=== PATIENT | male | born 2000 | race Native Hawaiian/Other Pacific Islander ===

== ENCOUNTER 2022-07-16 02:03 | Inpatient (IN) | payer MEDICAID, OTHER ==
--- NOTE | 2022-07-16 03:03 | ED ---
Psych HPI - General Source: patient, RN notes reviewed Mode of arrival: ambulatory <AcJulian - Last Filed: 07/16/22 04:48> <Shlomo Petty - Last Filed: 07/18/22 08:10> - General Chief Complaint: Psychiatric Symptoms Stated Complaint: Mental status Time Seen by Provider: 07/16/22 02:49 - History of Present Illness Initial Comments: This is an otherwise healthy 22-year-old male who presents tonight complaining of ongoing stress, depression, anxiety. States his going on for about 3 months due to life stressors to include a recent breakup with his girlfriend. patient denies any alcohol or illicit drug abuse. Does occasionally use marijuana. States that he is having suicidal thoughts but no specific plan. No homicidal ideation. Patient has no other significant past medical history. Patient also complaining of ongoing sleep disturbance, lack of enjoyment, diminished appetite. No headache, no fever or chills, no changes in vision or hearing, no sore throat or difficulty with speech, no neck pain, no chest pain or shortness of breath, no abdominal pain, no nausea or vomiting, no changes in urination or bowel movem ents, no numbness or tingling, no extremity pain, no skin rashes or lesions. Past medical, surgical, social, and family history reviewed. (Julian Shen) - Related Data Allergies Allergy/AdvReac Type Severity Reaction Status Date / Time No Known Allergies Allergy Verified 07/16/22 02:48 Review of Systems ROS Other: All systems not noted in ROS Statement are negative. <AcJulian - Last Filed: 07/16/22 04:48> ROS Other: All systems not noted in ROS Statement are negative. <Shlomo Petty - Last Filed: 07/18/22 08:10> ROS Statement: Those systems with pertinent positive or pertinent negative responses have been documented in the HPI. Past Medical History Past Medical History: No Reported History History of Any Multi-Drug Resistant Organisms: None Reported Past Surgical History: No Surgical Hx Reported Past Psychological History: No Psychological Hx Reported Smoking Status: Never smoker Past Alcohol Use History: None Reported Past Drug Use History: Marijuana <AcJulian - Last Filed: 07/16/22 04:48> General Exam General appearance: alert, in no apparent distress Head exam: Present: atraumatic, normocephalic, normal inspection Eye exam: Present: normal appearance, PERRL, EOMI. Absent: scleral icterus, conjunctival injection, periorbital swelling ENT exam: Present: normal exam, normal oropharynx, mucous membranes moist, normal external ear exam. Absent: mucous membranes dry Neck exam: Present: normal inspection, full ROM. Absent: tenderness, meningismus, lymphadenopathy Respiratory exam: Present: normal lung sounds bilaterally. Absent: respiratory distress, wheezes, rales, rhonchi, stridor Cardiovascular Exam: Present: regular rate, normal rhythm, normal heart sounds. Absent: systolic murmur, diastolic murmur, rubs, gallop, clicks GI/Abdominal exam: Present: soft, normal bowel sounds. Absent: distended, tenderness, guarding, rebound, rigid Extremities exam: Present: normal inspection, full ROM, normal capillary refill. Absent: tenderness, pedal edema, joint swelling, calf tenderness Back exam: Present: normal inspection Neurological exam: Present: alert, oriented X3, CN II-XII intact Psychiatric exam: Present: depressed, flat affect, other (Suicidal thoughts admitted). Absent: normal affect, normal mood, agitated, anxious, manic, homicidal ideation Skin exam: Present: warm, dry, intact, normal color. Absent: rash <Julian Shen - Last Filed: 07/16/22 04:48> - General Exam Comments Initial Comments: Patient does not appear to be ill or toxic, vital signs reviewed (Julian Shen) Course Vital Signs 07/16/22 07/16/22 02:44 07:28 Temperature 98 F Pulse Rate 60 62 Respiratory 18 18 Rate Blood Pressure 124/69 122/70 O2 Sat by Pulse 100 99 Oximetry Medical Decision Making <Julian Shen - Last Filed: 07/16/22 04:48> - Lab Data Result diagrams: 07/16/22 14:54 07/16/22 14:54 <Shlomo Petty - Last Filed: 07/18/22 08:10> - Medical Decision Making Patient presents with depressive symptoms secondary to breaking up with his girlfriend--symptoms of depression and lack of enjoyment for 3 months. We'll o btain a emergency psychiatric services evaluation. Patient endorsed to the ED attending physician at 4:48 AM for further evaluation and disposition. Patient awaiting EPS evaluation. (Julian Shen) patient has signed himself in for mental health (Shlomo Petty) - Lab Data Lab Results 07/16/22 07/16/22 07/16/22 Range/Units 02:58 02:58 05:31 Urine Color Yellow Urine Appearance Cloudy (Clear) Urine pH 6.0 (5.0-8.0) Ur Specific [place] 1.028 (1.001-1.035) Urine Protein Trace H (Negative) Urine Glucose (UA) Negative (Negative) Urine Ketones 2+ H (Negative) Urine Blood Negative (Negative) Urine Nitrite Negative (Negative) Urine Bilirubin Negative (Negative) Urine Urobilinogen <2.0 (<2.0) mg/dL Ur Leukocyte Esterase Large H (Negative) Urine RBC 4 (0-5) /hpf Urine WBC 85 H (0-5) /hpf Ur Squamous Epith Cells <1 (0-4) /hpf Calcium Oxalate Crystal Few H (None) /hpf Urine Bacteria Moderate H (None) /hpf Hyaline Casts 1 (0-2) /lpf Urine Mucus Rare H (None) /hpf Urine Opiates Screen Not Detected (NotDetected) Ur Oxycodone Screen Not Detected (NotDetected) Urine Methadone Screen Not Detected (NotDetected) Ur Propoxyphene Screen Not Detected (NotDetected) Ur Barbiturates Screen Not Detected (NotDetected) U Tricyclic Antidepress Not Detected (NotDetected) Ur Phencyclidine Scrn Not Detected (NotDetected) Ur Amphetamines Screen Not Detected (NotDetected) U Methamphetamines Scrn Not Detected (NotDetected) U Benzodiazepines Scrn Not Detected (NotDetected) Urine Cocaine Screen Not Detected (NotDetected) U Marijuana (THC) Screen Detected H (NotDetected) Coronavirus (PCR) Not Detected (Not Detectd) Disposition <Julian Shen - Last Filed: 07/16/22 04:48> Is patient prescribed a controlled substance at d/c from ED?: No Time of Disposition: 05:32 <Shlomo Petty - Last Filed: 07/18/22 08:10> Clinical Impression: Depression, Situational stress, Suicidal thoughts Disposition: ADMITTED IP TO THIS HOSP Condition: Stable
[2022-07-16 05:03] LABS: Amphetamine Screen,Urine Not Detected (NotDetected); Barbiturate Screen,Urine Not Detected (NotDetected); Benzodiazepines Screen,Urine Not Detected (NotDetected); Cocaine Screen,Urine Not Detected (NotDetected); Methadone Screen, Urine Not Detected (NotDetected); Opiate Screen,Urine Not Detected (NotDetected); Oxycodone Screen, Urine Not Detected (NotDetected); Phencyclidine Screen,Urine Not Detected (NotDetected); Tricyclic Antidepressant,Urine Not Detected (NotDetected); Urn Cannabinoid Scrn Detected (NotDetected)
[2022-07-16] MEDS ORDERED: LORazepam 1 MG TAB PO PRN (07:02)
[2022-07-16] MEDS ORDERED: MAGNESIUM HYDROXIDE 2,400 MG/10 ML CUP PO PRN (07:02)
[2022-07-16] MEDS ORDERED: ACETAMINOPHEN TAB 325 MG TAB PO PRN (07:02)
[2022-07-16] MEDS ORDERED: HALOPERIDOL LACTATE 5 MG/ML 1 ML VIAL IM PRN (07:02)
[2022-07-16] MEDS ORDERED: MAG HYDROX/AL HYDROX/SIMETH 30 ML CUP PO PRN (07:02)
[2022-07-16] MEDS ORDERED: LORazepam 2 MG/ML INJ IM PRN (07:06)
[2022-07-16] MEDS ORDERED: haloperidoL 5 MG TAB PO PRN (07:07)
[2022-07-16] MEDS ORDERED: NICOTINE 14MG/24HR PATCH TRANSDERM SCH (09:00)
[2022-07-16] MEDS ORDERED: FLUoxetine HCL 10 MG CAP PO STA (10:14)
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
[2022-07-16 15:32] LABS: ALT 17 U/L (4-49); AST 22 U/L (17-59); African American GFR (CKD) >90 (>60 ml/min/1.73 sqM); Albumin 4.9 g/dL (3.5-5.0); Alkaline Phosphatase 55 U/L (38-126); Anion Gap 14 mmol/L; Blood Urea Nitrogen 14 mg/dL (9-20); Calcium 9.9 mg/dL (8.4-10.2); Carbon Dioxide 25 mmol/L (22-30); Chloride 100 mmol/L (98-107); Glucose 125 mg/dL (74-99); Non-African American GFR(CKD) >90 (>60 ml/min/1.73 sqM); Potassium 4.2 mmol/L (3.5-5.1); Sodium 139 mmol/L (137-145); Total Bilirubin 1.5 mg/dL (0.2-1.3); Total Protein 7.5 g/dL (6.3-8.2)
[2022-07-16 15:35] LABS: Basophils % (A) 1 %; Eosinophils # (A) 0.1 k/uL (0-0.7); Eosinophils % (A) 1 %; HCT 44.6 % (39.0-53.0); HGB 15.2 gm/dL (13.0-17.5); Lymphocytes # (A) 1.1 k/uL (1.0-4.8); Lymphocytes % (A) 13 %; MCH 30.4 pg (25.0-35.0); MCV 89.3 fL (80.0-100.0); Monocytes # (A) 0.6 k/uL (0-1.0); Monocytes % (A) 8 %; Neutrophils # (A) 6.4 k/uL (1.3-7.7); Neutrophils % (A) 76 %; Platelet Count 311 k/uL (150-450); RBC 4.99 m/uL (4.30-5.90); RDW 13.1 % (11.5-15.5); WBC 8.3 k/uL (3.8-10.6)
[2022-07-16 15:44] LABS: Appearance,Urine Cloudy (Clear); Bacteria,Urine Moderate /hpf; Bilirubin,Urine Negative (Negative); Blood,Urine Negative (Negative); Calcium Oxalate Crystals,Urine Few /hpf; Color,Urine Yellow; Glucose,Urine (UA) Negative (Negative); Hyaline Casts,Urine 1 /lpf (0-2); Ketones,Urine 2+ (Negative); Leukocyte Esterase,Urine Large (Negative); Mucus,Urine Rare /hpf; Nitrite,Urine Negative (Negative); Protein,Urine Trace (Negative); RBC,Urine 4 /hpf (0-5); Specific Gravity,Urine 1.028 (1.001-1.035); Squamous Epithelial Cell,Urine <1 /hpf (0-4); Urobilinogen,Urine <2.0 mg/dL (<2.0); WBC,Urine 85 /hpf (0-5)
--- NOTE | 2022-07-16 15:57 | P.CONS ---
History of Present Illness - Reason for Consult Consult date: 07/16/22 - History of Present Illness 22-year-old male with no significant past medical history presents ED for behavioral disturbance. He is being admitted to mental health unit for further management of symptoms. [facility] has been consulted for medical management of this patient. Patient reports no complaints. He denies any headache, lower extremity edema, nausea or vomiting, fever chills, chest pain, shortness of breath, palpitations, changes in urination or bowel habits. No changes in appetite or weight. He d enies any dizziness, numbness/weakness/tingling of the extremities. He does not smoke cigarettes or drink alcohol. He reports occasional marijuana use. Review of systems has been performed and is negative except above. General: non toxic, no distress, appears at stated age Derm: warm, dry Head: atraumatic, normocephalic, symmetric Eyes: EOMI, no lid lag, anicteric sclera Mouth: no lip lesion, mucus membranes moist Cardiovascular: S1S2 reg, no murmur Lungs: CTA bilateral, no rhonchi, no rales , no accessory muscle use Abdominal: soft, nontender to palpation, no guarding, no appreciable o rganomegaly Ext: no gross muscle atrophy, no edema, no contractures Neuro: CN II-XI grossly intact, no focal neuro deficits Psych: Alert, oriented, appropriate affect #Elevated total bilirubin #Marijuana abuse Patient is elevated total bilirubin. Liver enzymes are otherwise within normal limits. This is of unknown significance. He has no abdominal pain. Continue to monitor. Patient has been encouraged to quit smoking marijuana. Thank you for this consultation. Please call [facility] with additional questions or concerns. Past Medical History Past Medical History: No Reported History History of Any Multi-Drug Resistant Organisms: None Reported Past Surgical History: No Surgical Hx Reported Past Psychological History: No Psychological Hx Reported Smoking Status: Never smoker Past Alcohol Use History: None Reported Past Drug Use History: Marijuana Medications and Allergies Allergies Allergy/AdvReac Type Severity Reaction Status Date / Time No Known Allergies Allergy Verified 07/16/22 02:48 Physical Exam Vitals: Vital Signs Temp Pulse Pulse Resp BP BP Pulse Ox 07/16/22 07:36 97.6 F 50 L 16 112/65 99 07/16/22 07:28 62 18 122/70 99 07/16/22 02:44 98 F 60 18 124/69 100 Intake and Output 07/16/22 07/16/22 07/16/22 06:59 14:59 22:59 Other: Weight 77.111 kg Results CBC & Chem 7: 07/16/22 14:54 07/16/22 14:54 Labs: Abnormal Lab Results - Last 24 Hours (Table) 07/16/22 07/16/22 Range/Units 02:58 14:54 Glucose 125 H (74-99) mg/dL Total Bilirubin 1.5 H (0.2-1.3) mg/dL U Marijuana (THC) Screen Detected H (NotDetected)
[2022-07-17] MEDS: FLUoxetine HCL 20 MG CAP PO SCH (08:46)
--- NOTE | 2022-07-17 12:53 | P.PN ---
Progress Note - Text Progress Note Date: 07/17/22 Interval History: Patient was seen in the interview room. He had been with visitors today. He reports that he has been doing well especially upon learning that his family was very concerned by his actions. He is future oriented and is excited to celebrate his recent birthday. He plans to return back to work. He has been taking medications and denies side effects. He denies active suicidal ideation but given recent suicide attempt with firearm, patient will need further stabilization prior to discharge. Mental Status Exam: General Appearance: Patient appears stated age with fair hygiene and grooming. Behavior: Patient does not display any bizarre or agitated behaviors today. Not restless and psychomotor retardation Speech: Patient's speech is spontaneous and regular tone/volume Mood/Affect: Mood is "better." Affect is mood-congruent Suicidality/Homicidality: Denies but patient had recent SA Perceptions: Denies Though content/process: Linear and goal-directed Memory and concentration: Intact to interview Judgment and insight: Fair Assessment Adjustment disorder with mixed disturbance of mood and conduct Cannabis use disorder Generalized anxiety disorder PLAN: -Patient is admitted under voluntary status to MHU for stabilization of psychiatric symptoms and safety. Patient signed adult voluntary form and medication consent and is placed in patient's chart. -Continue Prozac 20 mg daily -Ativan and Haldol PRN for agitation/aggression -Motivational interviewing for substance use -Patient was informed of the risks, benefits and side effects of the medication and patient verbally consented to taking the medications. Patient signed med consent form and was placed in chart. -Internal Medicine consult to perform medical evaluation and physical. -SW on board for discharge planning. SW to coordinate safe discharge (removal of firearms) - Encourage patient to participate in groups to work on coping skills.
[2022-07-18] MEDS: FLUoxetine HCL 20 MG CAP PO SCH (09:32)
--- NOTE | 2022-07-18 16:52 | P.PN ---
Progress Note - Text Progress Note Date: 07/18/22 Interval History: Patient was seen in the interview room. He reports having been attending grou ps. This provider and patient discussed aggression and how it can be directed inwards. He has been exercising and finds this to be positive outlet. He reports doing better overall. He has been taking medications and denies side effects. He denies active suicidal ideation but given recent suicide attempt with firearm, patient will need further stabilization prior to discharge. Mental Status Exam: General Appearance: Patient appears stated age with fair hygiene and grooming. Behavior: Patient does not display any bizarre or agitated behaviors today. Not restless and psychomotor retardation Speech: Patient's speech is spontaneous and regular tone/volume Mood/Affect: Mood is "better." Affect is mood-congruent Suicidality/Homicidality: Denies but patient had recent SA Perceptions: Denies Though content/process: Linear and goal-directed Memory and concentration: Intact to interview Judgment and insight: Fair Assessment Adjustment disorder with mixed disturbance of mood and conduct Cannabis use disorder Generalized anxiety disorder PLAN: -Patient is admitted under voluntary status to MHU for stabilization of psychiatric symptoms and safety. Patient signed adult voluntary form and medication consent and is placed in patient's chart. -Continue Prozac 20 mg daily -Ativan and Haldol PRN for agitation/aggression -Motivational interviewing for substance use -Recommend and discussed CBT -Patient was informed of the risks, benefits and side effects of the medication and patient verbally consented to taking the medications. Patient signed med consent form and was placed in chart. -Internal Medicine consult to perform medical evaluation and physical. -SW on board for discharge planning. SW to coordinate safe discharge (removal of firearms) - Encourage patient to participate in groups to work on coping skills.
[2022-07-18] MEDS ORDERED: MELATONIN 1 MG TAB PO PRN (17:45)
[2022-07-19 06:45] VITALS: BP 132/60; PULSE 56; RESP 16; TEMP 98.1
[2022-07-19] MEDS: FLUoxetine HCL 20 MG CAP PO SCH (09:50)
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
== END 2022-07-19 13:12 | disposition home or self-care (01) | DRG 882 ==
LOC: EC 02:03 → 3MHU 07:00
PROVIDERS: ADMIT Psychiatry & Neurology Psychiatry; ATTEND Psychiatry & Neurology Psychiatry
DX: F43.25 Adjustment disorder with mixed disturbance of emotions and conduct (principal); F12.90 Cannabis use, unspecified, uncomplicated; F16.90 Hallucinogen use, unspecified, uncomplicated; F41.1 Generalized anxiety disorder; F43.21 Adjustment disorder with depressed mood; Z79.899 Other long term (current) drug therapy; Z20.822 Contact with and (suspected) exposure to COVID-19
CPT/HCPCS: 80053; 80306; 81001; 82075; 83036; 84443; 85025; 87635; 99285